=== PATIENT | female | born 1940 | race African-American/Black ===

== ENCOUNTER 2018-09-19 05:28 | Day surgery (SDC) | payer OTHER ==
[~2018-09-19] VITALS: Ht 165.1 cm; Wt 70.8 kg
--- NOTE | ~2018-09-19 | O ---
[facility] [place] [address] OPERATIVE REPORT Name: OTF MELO Room #: 150-4 [facility]#: [id number] Admission: 09/19/18 ������������������ Attend Phys: Cleve Talley MD Discharge: ������������������ Date of : 42 Report #: [id number] THIS REPORT FOR: //name// CC: Dilma Talley DATE OF SERVICE: 09/19/[address] Cleve Talley and Dr. Dilma Regalado. PREOPERATIVE DIAGNOSIS: Left inguinal hernia. POSTOPERATIVE DIAGNOSIS: Left inguinal hernia. PROCEDURE: Left inguinal hernia repair with Prolene Hernia System mesh. SURGEON: Cleve Talley MD ANESTHESIA: Local IV sedation. DESCRIPTION OF PROCEDURE: The patient was brought to the operating room and placed on operative table in the supine position. Sequential compression devices were in place for DVT prophylaxis. There was no indication for preoperative antibiotics. The patient underwent IV sedation and the left inguinal area was prepped and draped in a sterile fashion. Skin and subcutaneous tissue were then infiltrated with 0.5% Marcaine and 1% Xylocaine in a 1:1 mixture. Left inguinal skin incision was performed through the previous Pfannenstiel incision scar using #10 scalpel blade. Hemostasis was obtained using electrocautery. Dissection was carried down through subcutaneous tissue to the external oblique fascia, which was then incised with a knife and opened with the Metzenbaum scissors. The ilioinguinal nerve was identified, dissected free, injected with a local mixture and preserved. The floor was inspected and there was an indirect inguinal hernia sac, which was dissected free and reduced back through the internal ring. The floor was intact. A large Prolene Hernia System mesh was then inserted through the floor and the underlay patch was then deployed in the preperitoneal space. Connector was left in the internal ring and the overlay patch was then deployed in the inguinal canal. The mesh was secured at the pubic tubercle superiorly with simple interrupted 2-0 Vicryl sutures. It was also secured to the connector of an internal ring using simple interrupted 2-0 Vicryl sutures. The ilioinguinal nerve was then returned to the canal intact. The external oblique fascia was then closed using running 2-0 Vicryl suture. Carl's fascia was then reapproximated using 3 simple interrupted 2-0 chromic sutures. Skin then closed with a running 4-0 subcuticular Vicryl stitch. The wound was then dressed with Mastisol, 1/2-inch Steri-Strips cut in half, Telfa, 4 x 4 gauze, sponge [place]. [place] [address] OPERATIVE REPORT Name: OTF MELO Room #: 150-4 [facility] M.R.#: [id number] Admission: 09/19/18 ������������������ Attend Phys: Cleve Talley MD Discharge: ������������������ Date of : 42 Report #: [id number] then awakened from the IV sedation, taken to recovery room in good condition. Estimated blood loss was approximately 5 mL and the patient tolerated the procedure well. All sponge, lap and instrument counts correct x 2. ��������������������������������������������� ���������������������������������������� By: ��������������������������������������������� [id number] Cleve Talley MD /nt
[~2018-09-19 05:28] MED LIST: ALKA-SELTZER H1 EACH PO; CENTRUM SILVER1 EAC4 PO; GLUCOSAMINE CH1 EA10 PO; IBUPROFEN 200200 M1 PO; POTASSIUM CITR500 GM PO; VENTOLIN HFA 1818 GM INH; VITAMIN D-32000 UNIT PO
[2018-09-19 11:37] VITALS: BP 180/78
[2018-09-19] MEDS ORDERED: NORCO 5-325 TA1 EACH PO (12:47)
[2018-09-19 14:01] VITALS: BP 180/78
== END 2018-09-19 15:00 | disposition home or self-care (01) ==
LOC: TBA 05:28 → OR 05:28 → TBA 05:29 → OR 08:04
DX: K40.90 Unilateral inguinal hernia, without obstruction or gangrene, not specified as recurrent (principal); K21.9 Gastro-esophageal reflux disease without esophagitis; M81.0 Age-related osteoporosis without current pathological fracture; Z96.642 Presence of left artificial hip joint; Z90.710 Acquired absence of both cervix and uterus; Z98.890 Other specified postprocedural states; Z87.891 Personal history of nicotine dependence; Z79.899 Other long term (current) drug therapy; Z88.8 Allergy status to other drugs, medicaments and biological substances
CPT/HCPCS: 50010; 50101; 50386; 50417; 52061; 56524; 56525; 56526; 62110; 62850; 70005